=== PATIENT | female | born 1985 | race Asian ===

== ENCOUNTER 2023-12-29 08:11 | Day surgery (SDC) | payer SELFPAY ==
[2023-12-22 15:37] VITALS: BMI 26.6
[2023-12-29] MEDS ORDERED: oxyCODONE HCL 5 MG TABLET PO PRN (08:12)
[2023-12-29] MEDS ORDERED: LACTATED RINGERS SOLUTION 1,000 ML IV SCH (08:15)
[2023-12-29] MEDS ORDERED: ACETAMINOPHEN INJECTION 100 ML IVPB ONE (08:31)
[2023-12-29] MEDS ORDERED: EPINEPHrine/PF 1 MG/1 ML (1:1,000) AMPULE ONE (08:35)
[2023-12-29] MEDS ORDERED: LIDOCAINE HCL 1%, 10 MG/ML (20ML VIAL) ONE (08:36)
[2023-12-29] MEDS ORDERED: BACITRACIN ZINC 15 GM TUBE TOPICAL OINTMENT ONE (08:36)
[2023-12-29] MEDS ORDERED: DEXAMETHASONE SOD PHOSPHATE 4 MG/1 ML VIAL ONE (09:34)
[2023-12-29] MEDS ORDERED: PROPOFOL 40 ML ONE (09:34)
[2023-12-29] MEDS ORDERED: ROCURONIUM BROMIDE 50 MG/5 ML SYRINGE ONE ×2 (09:37→11:35)
[2023-12-29] MEDS ORDERED: MIDAZOLAM HCL 2 MG/2 ML SINGLE DOSE VIAL ONE (11:29)
[2023-12-29] MEDS ORDERED: HYDROmorphone HCL/PF 1 MG/ML VIAL ONE (11:52)
[2023-12-29] MEDS ORDERED: ceFAZolin SODIUM 1 GM VIAL ONE (11:54)
[2023-12-29] MEDS ORDERED: GLYCOPYRROLATE 0.2 MG/1 ML VIAL ONE (12:02)
[2023-12-29] MEDS ORDERED: NEOSTIGMINE METHYLSULFATE 0.5 MG/1 ML - 10 ML MDV ONE (12:02)
[2023-12-29] MEDS ORDERED: ONDANSETRON 4 MG/2 ML VIAL ONE ×2 (12:02→14:33)
[2023-12-29] MEDS ORDERED: FENTANYL CITRATE/PF 50 MCG/ML VIAL ONE ×2 (14:26→14:47)
[2023-12-29] MEDS: ONDANSETRON 4 MG/2 ML VIAL IVPUSH PRN (14:35)
[2023-12-29] MEDS: KETOROLAC TROMETHAMINE 30 MG/1 ML VIAL IVPUSH ONE (14:55)
[2023-12-29] MEDS ORDERED: PROMETHAZINE HCL 25 MG/1 ML VIAL IVPB PRN (16:54)
[2023-12-29] MEDS: PROMETHAZINE HCL 25 MG/1 ML VIAL ONE (16:55)
[2023-12-29 18:21] VITALS: RESP 17
[2023-12-29 19:11] VITALS: BP 124/70; PULSE 69; TEMP 97.6
== END 2023-12-29 18:40 | disposition home or self-care (01) ==
LOC: FASU 08:11
PROVIDERS: ATTEND Surgery
CPT/HCPCS: 81025; 94760; J0131